=== PATIENT | male | born 1990 | race Two or more races ===

== ENCOUNTER 2020-03-14 13:18 | Emergency (ER) | payer MEDICAID, OTHER ==
[~2020-03-14] VITALS: Ht 165.1 cm; Wt 58.0 kg
[2020-03-14 13:22] VITALS: BP 112/92
--- NOTE | 2020-03-14 13:43 | NUR ---
FIRST CONTACT WITH PT. RECENTLY WENT THROUGH OPIATE WITHDRAWL. "MY BOSS WANTS ME TO GET CLEARANCE TO GO BACK TO WORK" PT SAYS HE IS HAVING HOT AND COLD FLASHES AND NAUSEA. PT'S AOX4. RESPS EVEN AND UNLABORED. PA AT BEDSIDE EVALUATING AT THIS TIME.
--- NOTE | 2020-03-14 14:34 | NUR ---
Patient given discharge instructions and they have confirmed that they understand the instructions. Patient ambulatory with steady gait.
== END 2020-03-14 14:35 | disposition home or self-care (01) ==
LOC: ED 14:24
DX: F11.10 Opioid abuse, uncomplicated (principal); F41.9 Anxiety disorder, unspecified; R11.2 Nausea with vomiting, unspecified
CPT/HCPCS: 99283